=== PATIENT | female | born 1980 ===

== ENCOUNTER 2021-07-09 14:17 | Inpatient (IN) | payer OTHER ==
[~2021-07-09] VITALS: Ht 165.1 cm; Wt 86.1 kg
[2021-07-30] VITALS (9 sets, daily range): BP systolic 108–134; BP diastolic 60–88; PULSE 54–73; TEMP 98.4–99.1
[2021-07-30] MEDS ORDERED: MULTI VITAMINS1 TAB PO (07:16)
[2021-07-30] MEDS ORDERED: FLONASEALLERGY NS (07:16)
[2021-07-31 00:45] VITALS: BP 103/54; PULSE 54; TEMP 98.2
[2021-07-31 04:50] VITALS: BP 104/47; PULSE 62; TEMP 98.4
[2021-07-31 08:00] VITALS: BP 111/63; PULSE 53; TEMP 98.2
[2021-07-31] MEDS ORDERED: PERCOCET 325 MG1 TA2 PO (09:42)
[2021-07-31] MEDS ORDERED: IBU800 M1 PO (09:42)
--- NOTE | 2021-07-31 10:00 | NUR ---
DISCHARGE TEACHING COMPLETED. EDUCATED ON FOLLOW UP APPOINTMENT AND PRESCRIPTIONS. QUESTIONS INVITED AND ANSWERED.
== END 2021-07-31 10:15 | disposition home or self-care (01) | DRG 743 ==
LOC: INPTSU 07-30 06:51 → OB 07-30 06:51 → SURG 07-30 09:00 → INPTSU 07-30 11:27 → OB 07-30 15:30
PROVIDERS: ADMIT Obstetrics & Gynecology
PROC: 0UT9FZZ Resection of Uterus, Via Natural or Artificial Opening With Percutaneous Endoscopic Assistance (ICD-10-PCS; principal; 2021-07-30 09:00)
DX: N80.9 Endometriosis, unspecified (principal); N94.6 Dysmenorrhea, unspecified; N92.0 Excessive and frequent menstruation with regular cycle
CPT/HCPCS: OP; A4314; J0690; J1100; J1170; J1885; J2405; J2704; J2710; J3010; J7120